=== PATIENT | male | born 1960 | race Caucasian/White ===

== ENCOUNTER 2023-02-15 14:25 | Observation (INO) ==
[2023-02-15 15:04] LABS: Rapid COVID-19 Molecular Undetected (Undetected)
[2023-02-15] MEDS ORDERED: Lidocaine 1% VIAL 10 MG/ML VIAL 30 ML ONE (15:04)
[2023-02-15] MEDS ORDERED: ceFAZolin 2 GM in NS PREMIX 2 GM/100 ML BAG IVPB ONE (15:46)
[2023-02-15] MEDS ORDERED: Morphine 2 MG/ML SYRINGE IV PRN (16:31)
[2023-02-15] MEDS ORDERED: Magnesium Hydroxide LIQ 30 ML UDC PO PRN (16:31)
[2023-02-15] MEDS ORDERED: Lactulose 30 ml UDC PO PRN (16:31)
[2023-02-15] MEDS ORDERED: Midazolam 2 mg/2 ml VIAL 1 mg/ml 2 ml VIAL (2 mg) ONE (16:33)
[2023-02-15] MEDS ORDERED: fentaNYL 100 mcg/2 ml 50 MCG/ML VIAL ONE ×3 (16:33→18:10)
[2023-02-15] MEDS ORDERED: Ondansetron 4 mg VIAL 2 MG/ML 2 ml VIAL ONE (16:33)
[2023-02-15] MEDS ORDERED: Propofol 10 MG/ML 20 ML BTL ONE (16:33)
[2023-02-15] MEDS ORDERED: Lidocaine 2% PF 5 ML VIAL ONE (16:33)
[2023-02-15] MEDS ORDERED: Vancomycin per Pharmacy 1 EA NOTE FOLLOW UP SCH (17:00)
[2023-02-15] MEDS ORDERED: Lactated Ringers 1000 ml BAG 1,000 ML IV SCH (17:00)
[2023-02-15] MEDS ORDERED: Ondansetron 4 mg VIAL 2 MG/ML 2 ml VIAL IV PRN ×3 (17:05→22:32)
[2023-02-15] MEDS ORDERED: Naloxone 0.4 mg VIAL 0.4 mg/ml 1 ml VIAL IV PRN ×2 (17:05→17:38)
[2023-02-15] MEDS ORDERED: Dextrose 50% Syringe 50 ml 25 GM/50 ML SYRINGE IV PUSH PRN (17:08)
[2023-02-15] MEDS ORDERED: Phenylephrine 40 mcg/mL 10mL (400mcg) SYRINGE ONE (17:18)
[2023-02-15] MEDS ORDERED: hydrALAZINE 20 mg/ml 1 ML Vial IV IV SLOW PU PRN (17:29)
[2023-02-15] MEDS ORDERED: Acetaminophen IV 1 GM/100ML 1,000 MG/100 ML BAG IV ONE (17:32)
[2023-02-15] MEDS ORDERED: Acetaminophen IV 1 GM/100ML 1,000 MG/100 ML BAG IV PRN (17:38)
[2023-02-15] MEDS ORDERED: fentaNYL 100 mcg/2 ml 50 MCG/ML VIAL IV PRN (17:38)
[2023-02-15] MEDS ORDERED: HYDROmorphone 1 MG/1 ML SYRINGE IV PRN (17:38)
[2023-02-15] MEDS: fentaNYL 100 mcg/2 ml 50 MCG/ML VIAL IV PRN ×4 (18:13→19:29)
[2023-02-15 20:55] LABS: ABS Basophils 0.1 10^3/uL (0.0-0.1); ABS Eosinophils 0.3 10^3/uL (0.0-0.5); ABS Monocytes 0.4 10^3/uL (0.0-1.1); ABS Neutrophils 4.2 10^3/uL (1.5-7.6); ABS Nucleated RBC 0.01 10^3/ul; Eosinophil % 3.8 %; Hematocrit 37.2 % (38-53); Hemoglobin 12.5 g/dL (13.2-16.3); Lymphocyte % 28.3 %; Mean Corpuscular Hemoglobin 26.7 pg (27-33); Mean Corpuscular Hgb Conc 33.5 g/dL (31-36); Mean Corpuscular Volume 79.6 fL (80-97); Mean Platelet Volume 8.3 fL (7.5-11.2); Nucleated Red Blood Cells % 0.1 /100 WBC (0.0-0.4); Platelet Count 255 10^3/uL (150-450); Red Blood Count 4.68 10^6/uL (4.06-5.63); Red Cell Distribution Width 14.6 % (12-17); White Blood Count 6.9 10^3/uL (3.6-10.2)
[2023-02-15] MEDS ORDERED: Vancomycin 1,750 MG in NS 0.9% 500 ml BAG 500 ML IVPB ONE (21:00)
[2023-02-15 21:15] LABS: C Reactive Protein 9.49 mg/L (<8.01); Calcium 8.7 mg/dL (8.6-10.3); Creatinine, Serum 1.06 mg/dL (0.67-1.17); Potassium 3.3 mmol/L (3.5-5.0); eGFR CKD-EPI 78.4 (>60)
[2023-02-15] MEDS: Cefepime 2 GM in Dextrose 2 GM/50 ML BAG IV SCH (21:21)
[2023-02-15] MEDS: Magnesium Hydroxide LIQ 30 ML UDC PO SCH (21:24)
[2023-02-16] MEDS ORDERED: Potassium Chlor 20 meq TAB.ER PO ONE (07:21)
[2023-02-16] MEDS: Cefepime 2 GM in Dextrose 2 GM/50 ML BAG IV SCH (08:32)
[2023-02-16] MEDS: Heparin 5000 UNITS/ML 1 mL VIAL SUBCUT SCH ×2 (08:39→21:35)
[2023-02-16] MEDS: Aspirin EC 81 mg TAB.EC (enteric coated) PO SCH (08:40)
[2023-02-16] MEDS: Vitamin THERAPEUTIC TAB PO SCH (08:41)
[2023-02-16] MEDS: Magnesium Hydroxide LIQ 30 ML UDC PO SCH ×2 (08:41→21:35)
[2023-02-16] MEDS ORDERED: Vancomycin 1000 MG in NS 0.9% 250 ML IVPB SCH (09:00)
[2023-02-16] MEDS ORDERED: LEVOTHYROXINE 300 MCG PO SCH (09:00)
[2023-02-16 09:18] LABS: ABS Basophils 0.1 10^3/uL (0.0-0.1); ABS Eosinophils 0.4 10^3/uL (0.0-0.5); ABS Lymphocytes 2.1 10^3/uL (1.0-4.8); ABS Monocytes 0.9 10^3/uL (0.0-1.1); ABS Neutrophils 5.7 10^3/uL (1.5-7.6); ABS Nucleated RBC 0.01 10^3/ul; Hematocrit 40.6 % (38-53); Hemoglobin 13.4 g/dL (13.2-16.3); Lymphocyte % 22.8 %; Mean Corpuscular Hemoglobin 26.9 pg (27-33); Mean Corpuscular Hgb Conc 32.9 g/dL (31-36); Mean Corpuscular Volume 81.6 fL (80-97); Mean Platelet Volume 8.3 fL (7.5-11.2); Nucleated Red Blood Cells % 0.1 /100 WBC (0.0-0.4); Platelet Count 271 10^3/uL (150-450); Red Blood Count 4.98 10^6/uL (4.06-5.63); Red Cell Distribution Width 14.9 % (12-17)
[2023-02-16 10:06] LABS: C Reactive Protein 22.35 mg/L (<8.01); Creatinine, Serum 1.13 mg/dL (0.67-1.17); Magnesium 1.5 mg/dL (1.9-2.7); Potassium 4.4 mmol/L (3.5-5.0); eGFR CKD-EPI 72.6 (>60)
[2023-02-16] MEDS ORDERED: Piperacillin/Tazobac ADVAN 3.375 GM in NS 0.9% 100 ml BAG 100 ML IV ONE (11:41)
[2023-02-16] MEDS ORDERED: Zosyn per Pharmacy NOTE FOLLOW UP SCH (12:00)
[2023-02-16] MEDS: ZOSYN 3.375 GM Q8H per EXTENDED INFUSION IV SCH (17:38)
[2023-02-17] MEDS: ZOSYN 3.375 GM Q8H per EXTENDED INFUSION IV SCH ×2 (01:06→09:18)
[2023-02-17] MEDS ORDERED: Vancomycin Trough Check NOTE FOLLOW UP ONE (08:30)
[2023-02-17] MEDS: Magnesium Hydroxide LIQ 30 ML UDC PO SCH (09:16)
[2023-02-17] MEDS: Aspirin EC 81 mg TAB.EC (enteric coated) PO SCH (09:17)
[2023-02-17] MEDS: Vitamin THERAPEUTIC TAB PO SCH (09:17)
[2023-02-17] MEDS: Heparin 5000 UNITS/ML 1 mL VIAL SUBCUT SCH (09:18)
[2023-02-17 14:38] VITALS: BP 174/79
== END 2023-02-17 15:33 | disposition home or self-care (01) ==
LOC: OR 14:25 → SSU 14:25
PROVIDERS: ADMIT Orthopaedic Surgery; ATTEND Orthopaedic Surgery
PROC: S.ORI&D (2023-02-15 16:45)

== ENCOUNTER 2023-03-05 05:12 | Inpatient (IN) ==
[2023-03-05] MEDS ORDERED: Ondansetron 4 mg VIAL 2 MG/ML 2 ml VIAL ONE (05:26)
[2023-03-05] MEDS ORDERED: Ondansetron 4 mg VIAL 2 MG/ML 2 ml VIAL IV ONE (05:27)
[2023-03-05] MEDS ORDERED: Labetalol IV 5 MG/ML 20 ml VIAL IV PUSH ONE (05:33)
[2023-03-05 06:51] LABS: ABS Basophils 0.1 10^3/uL (0.0-0.1); ABS Eosinophils 0.2 10^3/uL (0.0-0.5); ABS Lymphocytes 2.3 10^3/uL (1.0-4.8); ABS Monocytes 0.4 10^3/uL (0.0-1.1); Hematocrit 36.4 % (38-53); Hemoglobin 12.3 g/dL (13.2-16.3); Lymphocyte % 28.5 %; Mean Corpuscular Hemoglobin 26.5 pg (27-33); Mean Corpuscular Hgb Conc 33.9 g/dL (31-36); Mean Corpuscular Volume 78.3 fL (80-97); Mean Platelet Volume 8.6 fL (7.5-11.2); Platelet Count 246 10^3/uL (150-450); Red Blood Count 4.65 10^6/uL (4.06-5.63); Red Cell Distribution Width 14.7 % (12-17)
[2023-03-05 07:21] LABS: Albumin 3.7 g/dL (3.2-5.2); Albumin/Globulin Ratio 1.3 (1-3); Calcium 8.3 mg/dL (8.6-10.3); Creatinine, Serum 0.88 mg/dL (0.67-1.17); Globulin 2.8 g/dL (2-4); HDL Cholesterol 38.2 mg/dL; Magnesium 1.1 mg/dL (1.9-2.7); Potassium 3.7 mmol/L (3.5-5.0); Total Bilirubin 0.4 mg/dL (0.2-1.0); Total Protein 6.5 g/dL (6.4-8.9)
[2023-03-05] MEDS ORDERED: Potassium Chlor 20 meq TAB.ER PO ONE (07:24)
[2023-03-05] MEDS ORDERED: Magnesium Sulf 4 GM/100 ML IV 4,000 MG/100 ML BAG IVPB ONE (07:24)
[2023-03-05] MEDS ORDERED: Dextrose 50% Syringe 50 ml 25 GM/50 ML SYRINGE IV PUSH PRN (07:36)
[2023-03-05] MEDS ORDERED: Enoxaparin 100 MG/ML SYR SUBCUT SCH (08:00)
[2023-03-05 08:10] LABS: TSH Ultra Thyroid Stim Horm 1.9 mcIU/mL (0.34-5.60)
[2023-03-05 08:15] LABS: Ferritin 40.9 ng/mL (24-336)
[2023-03-05 08:37] LABS: High Sensitivity Troponin 1 Hr 1422 pg/mL (<20)
[2023-03-05] MEDS: Multivitamins/Minerals TAB PO SCH (09:04)
[2023-03-05] MEDS: Aspirin EC 81 mg TAB.EC (enteric coated) PO SCH (09:05)
[2023-03-05 10:43] LABS: High Sensitivity Troponin 3 Hr 1488 pg/mL (<20)
[2023-03-05] MEDS ORDERED: Heparin DRIP 25,000 UNITS BAG 25,000 UNITS/500 ML BAG IV SCH (15:00)
[2023-03-05] MEDS ORDERED: Heparin 5000 UNITS/ML 1 mL VIAL IV PRN (15:00)
[2023-03-05 15:09] LABS: Hematocrit 40.7 % (38-53); Hemoglobin 13.6 g/dL (13.2-16.3); Mean Corpuscular Hemoglobin 26.6 pg (27-33); Mean Corpuscular Hgb Conc 33.4 g/dL (31-36); Mean Corpuscular Volume 79.7 fL (80-97); Mean Platelet Volume 8.9 fL (7.5-11.2); Platelet Count 293 10^3/uL (150-450); Red Cell Distribution Width 14.7 % (12-17)
[2023-03-05 15:17] LABS: Activated Partial Thrombo Time 37.6 seconds (26.0-38.0); INR 1.09 (0.88-1.18)
[2023-03-05 15:37] LABS: RBC Morphology Normal (Normal)
[2023-03-05 15:38] LABS: ABS Basophils 0.1 10^3/uL (0.0-0.1); ABS Eosinophils 0.2 10^3/uL (0.0-0.5); ABS Lymphocytes 3.5 10^3/uL (1.0-4.8); ABS Monocytes 0.6 10^3/uL (0.0-1.1); ABS Neutrophils 5.7 10^3/uL (1.5-7.6); ABS Nucleated RBC 0.01 10^3/ul; Eosinophil % 1.7 %; Lymphocyte % 34.9 %; Nucleated Red Blood Cells % 0.1 /100 WBC (0.0-0.4)
[2023-03-05 15:39] LABS: Calcium 9.1 mg/dL (8.6-10.3); Creatinine, Serum 0.92 mg/dL (0.67-1.17); eGFR CKD-EPI 92.9 (>60)
[2023-03-06 06:33] LABS: ABS Basophils 0.1 10^3/uL (0.0-0.1); ABS Eosinophils 0.5 10^3/uL (0.0-0.5); ABS Lymphocytes 3.6 10^3/uL (1.0-4.8); ABS Monocytes 0.5 10^3/uL (0.0-1.1); ABS Nucleated RBC 0.01 10^3/ul; Eosinophil % 5.2 %; Hematocrit 36.7 % (38-53); Hemoglobin 12.3 g/dL (13.2-16.3); Lymphocyte % 41.6 %; Mean Corpuscular Hemoglobin 26.4 pg (27-33); Mean Corpuscular Hgb Conc 33.5 g/dL (31-36); Mean Corpuscular Volume 78.7 fL (80-97); Mean Platelet Volume 8.9 fL (7.5-11.2); Nucleated Red Blood Cells % 0.1 /100 WBC (0.0-0.4); Platelet Count 257 10^3/uL (150-450); Red Blood Count 4.66 10^6/uL (4.06-5.63); Red Cell Distribution Width 14.6 % (12-17); White Blood Count 8.6 10^3/uL (3.6-10.2)
[2023-03-06] MEDS: Multivitamins/Minerals TAB PO SCH (08:44)
[2023-03-06] MEDS: Aspirin EC 81 mg TAB.EC (enteric coated) PO SCH ×2 (08:50→11:25)
[2023-03-06] MEDS ORDERED: Pneumococcal Vac 23-Polyvalent IM ONE (09:00)
[2023-03-06] MEDS ORDERED: Midazolam 10 mg/10 ml VIAL 1 mg/ml 10 ml VIAL (10 mg) IV SLOW PU ONE (11:30)
[2023-03-06] MEDS ORDERED: Naloxone 0.4 mg VIAL 0.4 mg/ml 1 ml VIAL IV PUSH PRN (11:30)
[2023-03-06] MEDS ORDERED: fentaNYL 100 mcg/2 ml 50 MCG/ML VIAL IV SLOW PU ONE (11:30)
[2023-03-06] MEDS ORDERED: Flumazenil 0.5 mg/5 ml 0.1 MG/ML 5 ml VIAL IV PRN (11:30)
[2023-03-06] MEDS ORDERED: Lidocaine 1% MPF 5 ML VIAL ONE ×2 (11:32→11:33)
[2023-03-06] MEDS ORDERED: fentaNYL 100 mcg/2 ml 50 MCG/ML VIAL ONE (11:32)
[2023-03-06] MEDS ORDERED: Midazolam 5 mg/5 ml VIAL 1 mg/ml 5 ml VIAL (5 mg) ONE (11:32)
[2023-03-06] MEDS ORDERED: Heparin 2 UNITS/ML 1000 mls 3,000 ML IV ONE (11:32)
[2023-03-06] MEDS ORDERED: Heparin 1,000 UNIT/ML 10 ml (10,000 UNITS) CATHLAB/DIALYSIS ONE (11:32)
[2023-03-06] MEDS ORDERED: nitroGLYCERIN DRIP 25,000 MCG/250 ML BTL ONE (11:32)
[2023-03-06] MEDS ORDERED: Iohexol 350 (CONTRAST) 100 ML PAK IV ONE (11:33)
[2023-03-06] MEDS ORDERED: niCARdipine 0.1MG/ML IVPREMIX 20 MG/200 ML BAG IV ONE (11:33)
[2023-03-06] MEDS ORDERED: Iohexol 350 (CONTRAST) 200 ML MDV IV ONE (11:33)
[2023-03-06] MEDS: NS 0.9% 1000 ml BAG 1,000 ML IV SCH ×2 (12:00→18:01)
[2023-03-07] MEDS: NS 0.9% 1000 ml BAG 1,000 ML IV SCH (06:18)
[2023-03-07 06:23] LABS: ABS Basophils 0.1 10^3/uL (0.0-0.1); ABS Eosinophils 0.4 10^3/uL (0.0-0.5); ABS Lymphocytes 2.8 10^3/uL (1.0-4.8); ABS Monocytes 0.6 10^3/uL (0.0-1.1); ABS Neutrophils 3.4 10^3/uL (1.5-7.6); Eosinophil % 5.7 %; Hematocrit 35.5 % (38-53); Hemoglobin 11.9 g/dL (13.2-16.3); Lymphocyte % 39.4 %; Mean Corpuscular Hgb Conc 33.5 g/dL (31-36); Mean Corpuscular Volume 80.7 fL (80-97); Nucleated Red Blood Cells % 0.1 /100 WBC (0.0-0.4); Platelet Count 229 10^3/uL (150-450); White Blood Count 7.2 10^3/uL (3.6-10.2)
[2023-03-07 06:31] LABS: Calcium 8.2 mg/dL (8.6-10.3); Magnesium 1.7 mg/dL (1.9-2.7); Potassium 4.3 mmol/L (3.5-5.0)
[2023-03-07] MEDS ORDERED: Magnesium Sulfate IV 3 GM in NS 0.9% 100 ml BAG 100 ML IVPB ONE (07:13)
[2023-03-07] MEDS: Aspirin EC 81 mg TAB.EC (enteric coated) PO SCH (09:11)
[2023-03-07] MEDS: Multivitamins/Minerals TAB PO SCH (09:12)
[2023-03-07 14:47] VITALS: BP 148/76
== END 2023-03-07 16:56 | disposition home or self-care (01) | DRG 281 ==
LOC: ED 05:12 → EDHOLD 05:12 → SUATTDRO 06:17 → MEDTELE 13:50
PROVIDERS: ADMIT Hospitalist; ATTEND Internal Medicine